=== PATIENT | male | born 1990 | race American Indian/Alaskan Native ===

== ENCOUNTER 2017-11-12 11:42 | Emergency (ER) | payer SELFPAY ==
[2017-11-12] MEDS ORDERED: Ketorolac 30 MG/ML SDV IM ONE (12:43)
--- NOTE | 2017-11-12 12:46 | EDM.PDOC ---
ED HPI GENERAL MEDICAL PROBLEM - General Chief Complaint: Chest Pain Stated Complaint: SHARP PAIN IN CHEST, HURTS TO BREATH Time Seen by Provider: 11/12/17 12:39 Source of Information: Reports: Patient, RN Notes Reviewed History Limitations: Reports: No Limitations - History of Present Illness INITIAL COMMENTS - FREE TEXT/NARRATIVE: 27-year-old gentleman presents emergency department day complaint of chest wall pain, he states the pain started early this morning at about 3:30 he does work at the [employer],O to lifting heavy boxes, he does not recall any particular injury denies any nausea vomiting diaphoresis or shortness of breath, he states it does hurt to take a deep breath rates the pain 4 out of 10 however she push and the spots pain will increase to 9 out of 10 Chest Pain Score (Numeric/FACES): 3 - Related Data Allergies Allergy/AdvReac Type Severity Reaction Status Date / Time No Known Allergies Allergy Verified 11/12/17 13:02 Home Meds: Home Meds NK [No Known Home Meds] 11/12/17 [History] Past Medical History - Past Surgical History HEENT Surgical History: Reports: Tonsillectomy Social & Family History - Tobacco Use Smoking Status *Q: Heavy Tobacco Smoker Years of Tobacco use: 12 Packs/Tins Daily: 0.5 - Caffeine Use Caffeine Use: Reports: Coffee, Energy Drinks, Soda - Recreational Drug Use Recreational Drug Use: No ED ROS GENERAL - Review of Systems Review Of Systems: See Below Constitutional: Reports: No Symptoms Respiratory: Reports: Shortness of Breath (With a deep breath) Cardiovascular: Reports: Chest Pain GI/Abdominal: Reports: No Symptoms : Reports: No Symptoms Musculoskeletal: Reports: No Symptoms Skin: Reports: No Symptoms ED EXAM, GENERAL - Physical Exam Exam: See Below Exam Limited By: No Limitations General Appearance: Alert, WD/WN, No Apparent Distress Respiratory/Chest: No Respiratory Distress, Lungs Clear, Normal Breath Sounds, No Accessory Muscle Use, Other (Chest tenderness approximately T7 region anterior chest left side) Cardiovascular: Regular Rate, Rhythm, No Murmur GI/Abdominal: Soft, Non-Tender Course - Vital Signs Last Recorded V/S: Last Vital Signs Temp 98.9 F 11/12/17 12:31 Pulse 83 11/12/17 12:31 Resp 27 H 11/12/17 12:31 BP 108/60 11/12/17 12:31 Pulse Ox 99 07/08/18 12:31 - Orders/Labs/Meds Orders: Active Orders 24 hr Category Date Time Status Cardiac Monitoring [RC] .As Directed Care 11/12/17 12:43 Active EKG Documentation Completion [RC] ASDIRECTED Care 11/12/17 12:43 Active Chest 2V [CR] Stat Exams 11/12/17 12:43 Taken EKG 12 Lead [EK] Stat Ther 11/12/17 12:43 Ordered Labs: Laboratory Tests 11/12/17 11/12/17 Range/Units 12:43 12:43 WBC 12.9 H (4.5-11.0) K/uL RBC 4.70 (4.30-5.90) M/uL Hgb 13.1 (12.0-15.0) g/dL Hct 38.1 L (40.0-54.0) % MCV 81 (80-98) fL MCH 28 (27-31) pg MCHC 34 (32-36) % Plt Count 226 (150-400) K/uL Neut % (Auto) 76 H (36-66) % Lymph % (Auto) 15 L (24-44) % [place] % (Auto) 7 H (2-6) % Eos % (Auto) 2 (2-4) % Baso % (Auto) 0 (0-1) % Sodium 138 L (140-148) mmol/L Potassium 3.8 (3.6-5.2) mmol/L Chloride 103 (100-108) mmol/L Carbon Dioxide 25 (21-32) mmol/L Anion Gap 13.8 (5.0-14.0) mmol/L BUN 18 (7-18) mg/dL Creatinine 1.0 (0.8-1.3) mg/dL Est Cr Clr Drug Dosing 101.86 mL/min Estimated GFR (MDRD) > 60 (>60) Glucose 117 H (74-106) mg/dL Calcium 8.5 (8.5-10.1) mg/dL Troponin I < 0.017 (0.000-0.056) ng/mL Meds: Medications Discontinued Medications Generic Name Dose Route Start Last Admin Trade Name Freq PRN Reason Stop Dose Admin Ketorolac Tromethamine 30 mg 11/12/17 12:43 11/12/17 13:05 Toradol IM 11/12/17 12:44 30 mg ONETIME ONE Administration Departure - Departure Time of Disposition: 13:27 Disposition: Home, Self-Care 01 Condition: Good Clinical Impression: Chest wall pain Referrals: PCP,None [Primary Care Provider] - Forms: ED Department Discharge Additional Instructions: Continue to use ibuprofen as needed for pain control, Please followup with your primary care provider in 3-5 days if not better, please call return to the emergency department with worsening of symptoms. - My Orders Last 24 Hours: My Active Orders 11/12/17 12:43 Cardiac Monitoring [RC] .As Directed EKG Documentation Completion [RC] ASDIRECTED Chest 2V [CR] Stat EKG 12 Lead [EK] Stat - Assessment/Plan Last 24 Hours: My Active Orders 11/12/17 12:43 Cardiac Monitoring [RC] .As Directed EKG Documentation Completion [RC] ASDIRECTED Chest 2V [CR] Stat EKG 12 Lead [EK] Stat Plan: Assessment Acuity = acute Site and laterality = chest wall pain Etiology = probably related to lifting injury Manifestations = none Location of injury = Home Lab values = CBC reveals a WBC at 12.7 consistent leukocytosis BMP is unremarkable, troponin negative, EKG demonstrates normal sinus rhythm, chest x- ray I did review films myself I cannot appreciate any acute process, the official read from radiology is pending Plan He had good relief with the Toradol injection, plan to discharge home use ibuprofen as needed for pain control follow-up primary care 3-5 days if not better This note was dictated using [employer] voice recognition software please call with any questions on syntax or grammar.
--- NOTE | 2017-11-13 09:07 | CR ---
CHEST: 2 view CLINICAL HISTORY:Chest pain COMPARISON:None FINDINGS: Heart and pulmonary vascularity appear normal. Lung [place] are clear.. IMPRESSION: No acute cardiopulmonary process
== END 2017-11-12 13:33 | disposition home or self-care (01) ==
LOC: JP.ED 11:42
DX: R07.89 Other chest pain (principal); F17.210 Nicotine dependence, cigarettes, uncomplicated
CPT/HCPCS: 36415; 71046; 80048; 84484; 85025; 93005; 96372; 99285; J1885

== ENCOUNTER 2024-12-27 23:22 | Emergency (ER) | payer SELFPAY | END 2024-12-28 01:13 | disposition home or self-care (01) | LOC: JP.ED 23:22 | DX: J02.9 Acute pharyngitis, unspecified (principal); F17.210 Nicotine dependence, cigarettes, uncomplicated; Z86.16 Personal history of COVID-19 | CPT/HCPCS: 87651; 99283 ==

== ENCOUNTER 2025-01-29 19:27 | Emergency (ER) | payer SELFPAY | END 2025-01-29 20:56 | disposition left against medical advice (07) | LOC: JP.ED 19:27 | DX: Z53.21 Procedure and treatment not carried out due to patient leaving prior to being seen by health care provider (principal) | CPT/HCPCS: 82947 ==